=== PATIENT | male | born 1965 | race African-American/Black ===

== ENCOUNTER 2017-01-14 10:00 | Emergency (ER) | payer MEDICARE, OTHER ==
[~2017-01-14] VITALS: Ht 172.7 cm; Wt 93.0 kg
[~2017-01-14 10:00] MED LIST: BENA20TA4 PO; CYCL1TAB18 PO; GABA300C8 PO; HYDR12.56 PO; LIS5T GT; MAGN400T7 PO; METF-312 PO; METF-314 PO; NOR10T GT; OYST500T48 OR; POTA8TAB2 PO; [UNRECOGNIZED DRUG - CODE] PO
[2017-01-14 10:12] VITALS: BP 127/75
== END 2017-01-14 10:54 | disposition home or self-care (01) ==
LOC: ER 10:09
DX: E11.9 Type 2 diabetes mellitus without complications (principal); I10 Essential (primary) hypertension; F17.210 Nicotine dependence, cigarettes, uncomplicated; F12.10 Cannabis abuse, uncomplicated; Z76.0 Encounter for issue of repeat prescription

== ENCOUNTER 2017-03-13 18:57 | Emergency (ER) | payer OTHER ==
[~2017-03-13] VITALS: Ht 172.7 cm; Wt 95.3 kg
[2017-03-14 00:30] VITALS: BP 110/78
[2017-03-14] MEDS ORDERED: ACETAMINOPHEN 325 MG TAB PO ONE (00:30)
[2017-03-14] MEDS ORDERED: ONDANSETRON ODT 4 MG TAB PO ONE ×2 (00:32→00:45)
== END 2017-03-14 00:47 | disposition home or self-care (01) ==
LOC: ER 18:59
DX: S09.90XA Unspecified injury of head, initial encounter (principal); E11.9 Type 2 diabetes mellitus without complications; I10 Essential (primary) hypertension; F17.210 Nicotine dependence, cigarettes, uncomplicated; F12.10 Cannabis abuse, uncomplicated; Y08.89XA Assault by other specified means, initial encounter; Y93.89 Activity, other specified; Y99.8 Other external cause status; Y92.89 Other specified places as the place of occurrence of the external cause; Z79.899 Other long term (current) drug therapy
CPT/HCPCS: 70450; 99284; Q0162; 82962

== ENCOUNTER 2017-04-05 08:55 | Emergency (ER) | payer OTHER ==
[~2017-04-05] VITALS: Ht 172.7 cm; Wt 95.7 kg
[~2017-04-05 08:55] MED LIST changes: +BENA20TA14 PO; -BENA20TA4 PO; +GABA-497 PO; -GABA300C8 PO; -METF-312 PO; -METF-314 PO; +METF-370 PO; +METF-371 PO
[2017-04-05 09:35] VITALS: BP 124/77
== END 2017-04-05 11:11 | disposition home or self-care (01) ==
LOC: ER 08:55
DX: M76.62 Achilles tendinitis, left leg (principal); E11.9 Type 2 diabetes mellitus without complications; I10 Essential (primary) hypertension; F17.210 Nicotine dependence, cigarettes, uncomplicated; F12.10 Cannabis abuse, uncomplicated; Z79.899 Other long term (current) drug therapy
CPT/HCPCS: 73600

== ENCOUNTER 2017-05-08 06:06 | Emergency (ER) | payer OTHER ==
[~2017-05-08] VITALS: Ht 172.7 cm; Wt 66.0 kg
[2017-05-08 06:20] VITALS: BP 139/104
== END 2017-05-08 07:10 | disposition home or self-care (01) ==
LOC: ER 06:06
DX: L73.2 Hidradenitis suppurativa (principal); R11.0 Nausea; E11.9 Type 2 diabetes mellitus without complications; I10 Essential (primary) hypertension; F17.210 Nicotine dependence, cigarettes, uncomplicated; F12.10 Cannabis abuse, uncomplicated

== ENCOUNTER 2018-02-01 20:32 | Emergency (ER) | payer OTHER ==
[~2018-02-01] VITALS: Ht 172.7 cm; Wt 93.0 kg
[~2018-02-01 20:32] MED LIST changes: -GABA-497 PO; +GABA300C10 PO
[2018-02-01 23:26] VITALS: BP 109/61
== END 2018-02-02 00:15 | disposition home or self-care (01) ==
LOC: ER 20:40
DX: S13.4XXA Sprain of ligaments of cervical spine, initial encounter (principal); E11.9 Type 2 diabetes mellitus without complications; I10 Essential (primary) hypertension; F17.210 Nicotine dependence, cigarettes, uncomplicated; F12.10 Cannabis abuse, uncomplicated; R51 Headache; V49.9XXA Car occupant (driver) (passenger) injured in unspecified traffic accident, initial encounter; Y93.89 Activity, other specified; Y92.488 Other paved roadways as the place of occurrence of the external cause; Y99.8 Other external cause status
CPT/HCPCS: 70450; 72100; 72125

== ENCOUNTER 2018-06-24 06:29 | Emergency (ER) | payer OTHER ==
[~2018-06-24] VITALS: Ht 172.7 cm; Wt 95.3 kg
[2018-06-24 08:08] VITALS: BP 124/74
== END 2018-06-24 08:34 | disposition home or self-care (01) ==
LOC: ER 06:31
DX: M14.6 Charcot's joint (principal); E11.9 Type 2 diabetes mellitus without complications; I10 Essential (primary) hypertension; F17.210 Nicotine dependence, cigarettes, uncomplicated; F12.10 Cannabis abuse, uncomplicated; Z79.899 Other long term (current) drug therapy
CPT/HCPCS: 82962

== ENCOUNTER 2018-12-19 09:03 | Emergency (ER) | payer OTHER ==
[~2018-12-19] VITALS: Ht 172.7 cm; Wt 86.2 kg
[2018-12-19 09:45] VITALS: BP 138/96
[2018-12-19 10:09] LABS: Basophils # (auto) 0.1 uL; Basophils % (auto) 0.6 % (0.0-2.0); Eosinophils # (auto) 0 uL; Eosinophils % (auto) 0.4 % (0.0-7.0); Hematocrit 39.7 % (41.0-53.0); Hemoglobin 12.5 g/dL (13.5-17.5); Lymphocytes # (auto) 0.8 uL; Lymphocytes % (auto) 8.2 % (10.0-50.0); Mean Corpuscular Hemoglobin 23.2 pg (28.0-32.0); Mean Corpuscular Hgb Conc. 31.5 g/dL (32.0-36.0); Mean Corpuscular Volume 73.7 fL (80.0-100.0); Monocytes # (auto) 0.6 uL; Monocytes % (auto) 6.2 % (0.0-12.0); Neutrophils % (auto) 84.6 % (37.0-80.0); Nucleated Red Blood Cells % 0.1 %; Platelet Count (auto) 220 10^3/uL (140-450); Red Blood Cells 5.39 10^6/uL (4.5-5.90); Red Cell Distribution Width 17.6 % (11.8-14.3); White Blood Cell 9.5 10^3/uL (4.4-10.8)
[2018-12-19 10:22] LABS: Albumin 3.3 g/dL (3.4-5.0); Anion Gap 5 (5-15); Blood Urea Nitrogen 23 mg/dL (7-18); Calcium 9.4 mg/dL (8.5-10.1); Carbon Dioxide 28 mmol/L (21-32); Chloride 107 mmol/L (98-107); Magnesium 1.8 mg/dL (1.6-2.6); Potassium 4.3 mmol/L (3.5-5.1); Sodium 140 mmol/L (136-145)
[2018-12-19 10:29] LABS: Alanine Aminotransferase 12 U/L (16-61); Alkaline Phosphatase 87 U/L (45-117); Aspartate Aminotransferase 13 U/L (15-37); BUN/Creatinine Ratio 23.2; Bilirubin, Total 0.3 mg/dL (0.2-1.0); GFR African American 101 mL/min; GFR Non-African American 84 mL/min; Glucose 117 mg/dL (74-106); Total Protein 8.2 g/dL (6.4-8.2)
[2018-12-19] MEDS ORDERED: KETOROLAC TROMETH 60MG/2ML VIAL IM ONE (11:00)
[2018-12-19] MEDS ORDERED: DOCUSATE SOD 100 MG CAP PO ONE (11:00)
== END 2018-12-19 11:54 | disposition home or self-care (01) ==
LOC: ER 09:03
DX: M75.101 Unspecified rotator cuff tear or rupture of right shoulder, not specified as traumatic (principal); E11.9 Type 2 diabetes mellitus without complications; I10 Essential (primary) hypertension; F17.210 Nicotine dependence, cigarettes, uncomplicated; F12.90 Cannabis use, unspecified, uncomplicated; Z79.4 Long term (current) use of insulin
CPT/HCPCS: 36415; 70450; 80053; 83735; 84484; 85025; 93005; 99284; J1885

== ENCOUNTER → 2020-11-05 | Outpatient (CLI) | payer OTHER, MEDICAID ==
[~2020-11-05] MED LIST changes: +CYCL10TA6 PO; -CYCL1TAB18 PO
[2020-11-05 07:35] LABS: Eosinophils # (auto) 0.1 10 ^3/uL (0-0.8); Lymphocytes # (auto) 1.4 10 ^3/uL (0.4-5.4); Monocytes # (auto) 0.7 10 ^3/uL (0-1.3); Neutrophils # (auto) 5.3 10 ^3/uL (1.6-8.6)
[2020-11-05 07:37] LABS: Basophils # (auto) 0 10 ^3/uL (0-0.2); Basophils % (auto) 0.6 % (0.0-2.0); Hematocrit 40.7 % (41.0-53.0); Hemoglobin 13.4 g/dL (13.5-17.5); Lymphocytes % (auto) 18.7 % (10.0-50.0); Mean Corpuscular Hemoglobin 25.7 pg (28.0-32.0); Mean Corpuscular Hgb Conc. 32.9 g/dL (32.0-36.0); Monocytes % (auto) 8.8 % (0.0-12.0); Neutrophils % (auto) 70.9 % (37.0-80.0); Nucleated Red Blood Cells % 0.1 %; Platelet Count (auto) 148 10^3/uL (140-450); Red Blood Cells 5.22 10^6/uL (4.5-5.90); Red Cell Distribution Width 14.9 % (11.8-14.3); White Blood Cell 7.4 10^3/uL (4.4-10.8)
[2020-11-05 07:58] LABS: Albumin 3.2 g/dL (3.4-5.0); Calcium 8.8 mg/dL (8.5-10.1); Potassium 4.2 mmol/L (3.5-5.1)
[2020-11-05 08:03] LABS: BUN/Creatinine Ratio 17.1; Bilirubin, Total 0.4 mg/dL (0.2-1.0); Total Protein 7.7 g/dL (6.4-8.2)
== END | disposition home or self-care (01) ==
LOC: LAB 07:20
PROVIDERS: ATTEND Internal Medicine
DX: E11.42 Type 2 diabetes mellitus with diabetic polyneuropathy (principal)
CPT/HCPCS: 36415; 80053; 80061; 83036; 85025

== ENCOUNTER → 2021-02-01 | Outpatient (CLI) | payer OTHER, MEDICAID ==
[2021-02-01 08:02] LABS: Hemoglobin 13.9 g/dL (13.5-17.5); Lymphocytes # (auto) 2.1 10 ^3/uL (0.4-5.4); Monocytes # (auto) 0.6 10 ^3/uL (0-1.3); Nucleated Red Blood Cells % 0.1 %
[2021-02-01 08:04] LABS: Basophils # (auto) 0 10 ^3/uL (0-0.2); Basophils % (auto) 0.7 % (0.0-2.0); Eosinophils # (auto) 0.2 10 ^3/uL (0-0.8); Eosinophils % (auto) 2.7 % (0.0-7.0); Hematocrit 42.8 % (41.0-53.0); Lymphocytes % (auto) 32.6 % (10.0-50.0); Mean Corpuscular Hemoglobin 25.5 pg (28.0-32.0); Mean Corpuscular Hgb Conc. 32.5 g/dL (32.0-36.0); Mean Corpuscular Volume 78.6 fL (80.0-100.0); Monocytes % (auto) 8.8 % (0.0-12.0); Neutrophils # (auto) 3.6 10 ^3/uL (1.6-8.6); Neutrophils % (auto) 55.2 % (37.0-80.0); Platelet Count (auto) 173 10^3/uL (140-450); Red Blood Cells 5.45 10^6/uL (4.5-5.90); Red Cell Distribution Width 14.9 % (11.8-14.3); White Blood Cell 6.5 10^3/uL (4.4-10.8)
[2021-02-01 08:27] LABS: Albumin 3.2 g/dL (3.4-5.0); Calcium 9.8 mg/dL (8.5-10.1); Potassium 4.3 mmol/L (3.5-5.1)
[2021-02-01 08:34] LABS: BUN/Creatinine Ratio 17.9; Bilirubin, Total 0.3 mg/dL (0.2-1.0); Total Protein 7.3 g/dL (6.4-8.2)
[2021-02-01 11:39] LABS: Urine Bacteria NONE SEEN /hpf (None Seen); Urine Blood Negative /uL (Negative); Urine Specific Gravity 1.016 (1.001-1.035); Urine WBC 1 /hpf (0 - 3)
== END | disposition home or self-care (01) ==
LOC: LAB 07:31
PROVIDERS: ATTEND Internal Medicine
DX: I10 Essential (primary) hypertension (principal); K63.5 Polyp of colon; E11.42 Type 2 diabetes mellitus with diabetic polyneuropathy; Z79.899 Other long term (current) drug therapy
CPT/HCPCS: 36415; 80053; 80061; 81001; 82043; 82274; 82306; 82542; 83036; 85025

== ENCOUNTER 2021-04-10 19:51 | Emergency (ER) | payer OTHER, MEDICAID ==
[~2021-04-10] VITALS: Ht 172.7 cm; Wt 93.0 kg
[2021-04-11] MEDS ORDERED: CLINDAMYCIN 900MG IV 50 ML IV ONE (01:30)
[2021-04-11 02:37] LABS: Basophils # (auto) 0.1 10 ^3/uL (0-0.2); Basophils % (auto) 0.6 % (0.0-2.0); Eosinophils # (auto) 0.2 10 ^3/uL (0-0.8); Hematocrit 38.7 % (41.0-53.0); Hemoglobin 12.7 g/dL (13.5-17.5); Lymphocytes % (auto) 18.9 % (10.0-50.0); Mean Corpuscular Hemoglobin 25.6 pg (28.0-32.0); Mean Corpuscular Hgb Conc. 32.8 g/dL (32.0-36.0); Monocytes # (auto) 0.9 10 ^3/uL (0-1.3); Monocytes % (auto) 9.1 % (0.0-12.0); Neutrophils # (auto) 7.2 10 ^3/uL (1.6-8.6); Neutrophils % (auto) 69.4 % (37.0-80.0); Nucleated Red Blood Cells % 0.1 %; Platelet Count (auto) 225 10^3/uL (140-450); Red Blood Cells 4.96 10^6/uL (4.5-5.90); Red Cell Distribution Width 14.5 % (11.8-14.3); White Blood Cell 10.4 10^3/uL (4.4-10.8)
[2021-04-11 02:56] LABS: Albumin 2.9 g/dL (3.4-5.0); BUN/Creatinine Ratio 20.2; Calcium 8.6 mg/dL (8.5-10.1); Potassium 4.4 mmol/L (3.5-5.1)
[2021-04-11 02:59] LABS: Bilirubin, Total 0.3 mg/dL (0.2-1.0); Total Protein 7.7 g/dL (6.4-8.2)
[2021-04-11 05:00] VITALS: BP 129/71
== END 2021-04-11 06:32 | disposition home or self-care (01) ==
LOC: ER 19:54
DX: H60.92 Unspecified otitis externa, left ear (principal); H93.8X2 Other specified disorders of left ear; E11.9 Type 2 diabetes mellitus without complications; I10 Essential (primary) hypertension; F17.210 Nicotine dependence, cigarettes, uncomplicated; Z79.84 Long term (current) use of oral hypoglycemic drugs; Z79.899 Other long term (current) drug therapy
CPT/HCPCS: 36415; 70450; 70486; 80053; 85025; 96365; 99285; J3490

== ENCOUNTER 2022-03-12 19:44 | Emergency (ER) | payer OTHER, MEDICAID ==
[~2022-03-12] VITALS: Ht 172.7 cm; Wt 65.3 kg
[~2022-03-12 19:44] MED LIST changes: +CYCL-839 PO; -CYCL10TA6 PO
[2022-03-12 19:47] VITALS: BP 113/64
[2022-03-12] MEDS ORDERED: DOCU-94 PO (20:36)
[2022-03-12] MEDS ORDERED: DOCUSATE SOD 100 MG CAP PO ONE (20:45)
[2022-03-12] MEDS ORDERED: MAGNESIUM CITRATE SOLUTION 300 ML BTL PO ONE (22:45)
[2022-03-12] MEDS ORDERED: FLEET ENEMA(ADULT) 135 ML PR ONE (23:00)
== END 2022-03-12 20:39 | disposition home or self-care (01) ==
LOC: ER 19:49
DX: K57.90 Diverticulosis of intestine, part unspecified, without perforation or abscess without bleeding (principal); K59.00 Constipation, unspecified; E11.9 Type 2 diabetes mellitus without complications; I10 Essential (primary) hypertension
CPT/HCPCS: 74176

== ENCOUNTER 2022-06-12 20:58 | Inpatient (IN) | payer MEDICARE, MEDICAID ==
[~2022-06-12] VITALS: Ht 172.7 cm; Wt 78.7 kg
[~2022-06-12 20:58] MED LIST changes: +DOCU-94 PO
[2022-06-13 00:31] LABS: Basophils # (auto) 0.1 10 ^3/uL (0-0.2); Eosinophils # (auto) 0.1 10 ^3/uL (0-0.8); Hemoglobin 10.9 g/dL (13.5-17.5)
[2022-06-13 00:32] LABS: Basophils % (auto) 0.4 % (0.0-2.0); Eosinophils % (auto) 0.7 % (0.0-7.0); Hematocrit 34.3 % (41.0-53.0); Lymphocytes # (auto) 1.2 10 ^3/uL (0.4-5.4); Lymphocytes % (auto) 8.8 % (10.0-50.0); Mean Corpuscular Hemoglobin 22.7 pg (28.0-32.0); Mean Corpuscular Hgb Conc. 31.8 g/dL (32.0-36.0); Mean Corpuscular Volume 71.5 fL (80.0-100.0); Monocytes % (auto) 7.5 % (0.0-12.0); Neutrophils # (auto) 11.4 10 ^3/uL (1.6-8.6); Neutrophils % (auto) 82.6 % (37.0-80.0); Red Cell Distribution Width 16.4 % (11.8-14.3); White Blood Cell 13.8 10^3/uL (4.4-10.8)
[2022-06-13 00:52] LABS: Albumin 2.9 g/dL (3.4-5.0); Calcium 9.9 mg/dL (8.5-10.1); Potassium 4.1 mmol/L (3.5-5.1)
[2022-06-13 00:54] LABS: BUN/Creatinine Ratio 15.7
[2022-06-13 00:57] LABS: Bilirubin, Total 0.2 mg/dL (0.2-1.0); Total Protein 8.6 g/dL (6.4-8.2)
[2022-06-13] MEDS ORDERED: CLINDAMYCIN 600MG IV 50 ML IV ONE (02:30)
[2022-06-13] MEDS ORDERED: SODIUM CHLORIDE 0.9% 500 ML IV ONE (02:30)
[2022-06-13] MEDS ORDERED: cefTRIAXone 1GM/50ML D5W 50 ML IV ONE (05:00)
[2022-06-13] MEDS ORDERED: ONDANSETRON HCL 4 MG/2 ML VIAL IV PRN (06:30)
[2022-06-13] MEDS ORDERED: ACETAMINOPHEN 325 MG TAB PO PRN (06:30)
[2022-06-13] MEDS ORDERED: DEXTROSE (50%) 50ML SYRG IV PRN (06:30)
[2022-06-13] MEDS ORDERED: TEMAZEPAM 15 MG CAP PO PRN (06:30)
[2022-06-13] MEDS: InsuLIN REG 1unit/0.01ml Soln (100units/ml) SC SCH ×4 (07:00→21:38)
[2022-06-13] MEDS: ACCU-CHEK COMFORT CURVE STRIP VI SCH ×4 (07:02→21:31)
[2022-06-13] MEDS: LISINOPRIL 5 MG TAB PO SCH (10:00)
[2022-06-13 10:45] VITALS: BP 91/49
[2022-06-13] MEDS: ENOXAPARIN SOD 40 MG/0.4 ML SYRINGE SC SCH (12:15)
[2022-06-13] MEDS: PANTOPRAZOLE 40 MG TAB PO SCH (12:16)
[2022-06-13] MEDS: levETIRAcetam 500 MG TAB PO SCH ×2 (12:16→21:30)
[2022-06-13] MEDS: CLINDAMYCIN 600MG IV 50 ML IV SCH ×2 (12:17→18:24)
[2022-06-13] MEDS: HCTZ 25 MG TAB PO SCH (12:17)
[2022-06-13 12:23] VITALS: BP 110/51
[2022-06-13] MEDS: GABAPENTIN 300 MG CAP PO SCH ×2 (14:00→21:30)
[2022-06-13] MEDS ORDERED: HYDR12.55 PO (14:48)
[2022-06-13] MEDS ORDERED: LEVE500T3 PO (14:48)
[2022-06-13] MEDS ORDERED: CEPH500C PO (14:48)
[2022-06-13] MEDS ORDERED: HYDR-4072 (14:48)
[2022-06-13] MEDS ORDERED: TRAM50TA2 PO (14:48)
[2022-06-13] MEDS ORDERED: LEVE100020 PO (14:48)
[2022-06-13 16:16] VITALS: BP 98/67
[2022-06-13] MEDS ORDERED: POLYETHYLENE GLYCOL 17 GM PWDR PO ONE (19:30)
[2022-06-13 22:00] VITALS: BP 116/62
[2022-06-13 22:35] LABS: Cholesterol 112 mg/dL (< 200); HDL Cholesterol 40 mg/dL (40-59); LDL Cholesterol 73 mg/dL (< 100); Triglycerides 59 mg/dL (< 150)
[2022-06-14] MEDS: CLINDAMYCIN 600MG IV 50 ML IV SCH ×3 (03:29→20:55)
[2022-06-14 03:54] LABS: Urine Bacteria NONE SEEN /hpf (None Seen); Urine Blood Negative /uL (Negative); Urine Hyaline Cast FEW /lpf (0 - 2); Urine Specific Gravity 1.013 (1.001-1.035); Urine WBC <1 /hpf (0 - 3)
[2022-06-14 04:19] LABS: Amphetamine Screen, Urine NEGATIVE (NEGATIVE); Barbiturate Scree,Urine NEGATIVE (NEGATIVE); Benzodiazephine Screen, Urine NEGATIVE (NEGATIVE); Cannabinoid Screen, Urine POSITIVE (NEGATIVE); Cocaine Screen, Urine NEGATIVE (NEGATIVE); Phencyclidine Screen, Urine NEGATIVE (NEGATIVE)
[2022-06-14 04:26] LABS: Opiate Scree,Urine NEGATIVE (NEGATIVE)
[2022-06-14] MEDS: cefTRIAXone 1GM/50ML D5W 50 ML IV SCH (04:46)
[2022-06-14 05:00] VITALS: BP 99/60
[2022-06-14] MEDS: GABAPENTIN 300 MG CAP PO SCH ×3 (06:15→22:26)
[2022-06-14] MEDS: ACCU-CHEK COMFORT CURVE STRIP VI SCH ×4 (06:15→22:27)
[2022-06-14 06:22] LABS: Eosinophils # (auto) 0.2 10 ^3/uL (0-0.8); Hemoglobin 10.2 g/dL (13.5-17.5); Neutrophils # (auto) 6.3 10 ^3/uL (1.6-8.6); Red Cell Distribution Width 16.1 % (11.8-14.3)
[2022-06-14] MEDS: InsuLIN REG 1unit/0.01ml Soln (100units/ml) SC SCH ×4 (06:23→22:00)
[2022-06-14 06:24] LABS: Basophils # (auto) 0.1 10 ^3/uL (0-0.2); Basophils % (auto) 0.7 % (0.0-2.0); Eosinophils % (auto) 2.1 % (0.0-7.0); Hematocrit 31.9 % (41.0-53.0); Lymphocytes # (auto) 1.4 10 ^3/uL (0.4-5.4); Lymphocytes % (auto) 15.5 % (10.0-50.0); Mean Corpuscular Hemoglobin 23.1 pg (28.0-32.0); Mean Corpuscular Volume 72.2 fL (80.0-100.0); Neutrophils % (auto) 70.7 % (37.0-80.0); Nucleated Red Blood Cells % 0.1 %; Red Blood Cells 4.42 10^6/uL (4.5-5.90); White Blood Cell 8.9 10^3/uL (4.4-10.8)
[2022-06-14 06:40] LABS: Potassium 3.9 mmol/L (3.5-5.1)
[2022-06-14 07:04] LABS: Albumin 2.5 g/dL (3.4-5.0); Bilirubin, Total 0.3 mg/dL (0.2-1.0); Calcium 9.5 mg/dL (8.5-10.1); Total Protein 7.7 g/dL (6.4-8.2)
[2022-06-14] MEDS ORDERED: POLYETHYLENE GLYCOL 17 GM PWDR PO ONE (07:45)
[2022-06-14 09:00] VITALS: BP 100/53
[2022-06-14] MEDS: HYDROcodone-ACET 5/325MG TAB PO PRN ×2 (09:33→22:27)
[2022-06-14] MEDS: levETIRAcetam 500 MG TAB PO SCH ×2 (09:33→22:26)
[2022-06-14] MEDS: PANTOPRAZOLE 40 MG TAB PO SCH (09:33)
[2022-06-14] MEDS: HCTZ 25 MG TAB PO SCH (09:34)
[2022-06-14] MEDS: ENOXAPARIN SOD 40 MG/0.4 ML SYRINGE SC SCH (09:34)
[2022-06-14] MEDS: LISINOPRIL 5 MG TAB PO SCH (09:35)
[2022-06-14 13:00] VITALS: BP 127/76
[2022-06-14 16:50] VITALS: BP 109/71
[2022-06-14 22:00] VITALS: BP 94/62
[2022-06-15] MEDS: CLINDAMYCIN 600MG IV 50 ML IV SCH ×2 (03:36→09:56)
[2022-06-15] MEDS: cefTRIAXone 1GM/50ML D5W 50 ML IV SCH (04:52)
[2022-06-15 05:00] VITALS: BP 125/57
[2022-06-15] MEDS: GABAPENTIN 300 MG CAP PO SCH ×2 (06:21→14:29)
[2022-06-15] MEDS: ACCU-CHEK COMFORT CURVE STRIP VI SCH ×2 (06:21→11:59)
[2022-06-15] MEDS: InsuLIN REG 1unit/0.01ml Soln (100units/ml) SC SCH ×2 (06:25→11:30)
[2022-06-15 09:00] VITALS: BP 102/61
[2022-06-15] MEDS: levETIRAcetam 500 MG TAB PO SCH (09:54)
[2022-06-15] MEDS: LISINOPRIL 5 MG TAB PO SCH (09:55)
[2022-06-15] MEDS: ENOXAPARIN SOD 40 MG/0.4 ML SYRINGE SC SCH (09:55)
[2022-06-15] MEDS: HCTZ 25 MG TAB PO SCH (10:00)
[2022-06-15 13:00] VITALS: BP 114/71
[2022-06-15] MEDS ORDERED: CLIN-203 PO (13:59)
[2022-06-15 15:13] VITALS: BP 114/71
== END 2022-06-15 16:34 | disposition home or self-care (01) | DRG 603 ==
LOC: ER 20:58 → OVERFLOW 06-13 06:30 → WEST WING 06-13 09:46
PROVIDERS: ADMIT Nurse Practitioner; ATTEND Internal Medicine
DX: L03.116 Cellulitis of left lower limb (principal); L97.919 Non-pressure chronic ulcer of unspecified part of right lower leg with unspecified severity; L97.929 Non-pressure chronic ulcer of unspecified part of left lower leg with unspecified severity; L03.115 Cellulitis of right lower limb; E11.622 Type 2 diabetes mellitus with other skin ulcer; I10 Essential (primary) hypertension; Z20.822 Contact with and (suspected) exposure to COVID-19; W18.2XXA Fall in (into) shower or empty bathtub, initial encounter; Y93.E1 Activity, personal bathing and showering; Z88.8 Allergy status to other drugs, medicaments and biological substances; Y92.89 Other specified places as the place of occurrence of the external cause; Y99.8 Other external cause status
CPT/HCPCS: 36415; 70450; 71045; 80053; 80061; 80307; 81001; 82270; 82306; 82962; 83036; 83605; 83880; 84443; 84484; 85025; 85652; 87040; 87081; 93005; 93306; 93925; 96361; 96365; 96367; G0378; J0696; J3490

== ENCOUNTER → 2022-11-08 | Outpatient (CLI) | payer MEDICARE, MEDICAID ==
[~2022-11-08] MED LIST changes: +CLIN-203 PO; +HYDR-4072; +HYDR12.55 PO; +LEVE100020 PO; +LEVE500T3 PO; -METF-371 PO; +TRAM50TA2 PO
== END | disposition home or self-care (01) ==
LOC: LAB 16:06
PROVIDERS: ATTEND Internal Medicine
DX: Z12.11 Encounter for screening for malignant neoplasm of colon (principal)
CPT/HCPCS: 82274